=== PATIENT | female | born 1995 | race Caucasian/White ===

== ENCOUNTER 2019-01-11 15:00 | Inpatient (IN) | payer OTHER ==
[~2019-01-11 15:00] MED LIST: BUPIVACAINE-EPI 0.25%-1:200000 MPF 30 ML VIAL. ONE; SURGICEL HEMOSTAT 4X8 EACH. ONE
[2019-01-11] MEDS ORDERED: PROPOFOL 20 ML IV ONE (15:34)
[2019-01-11] MEDS ORDERED: ONDANSETRON PF 4 MG/2 ML VIAL. ONE (15:34)
[2019-01-11] MEDS ORDERED: LIDOCAINE 2% PF 5 ML VIAL. ONE (15:34)
[2019-01-11] MEDS ORDERED: DEXAMETHASONE SOD PHOS 4 MG/ML VIAL ONE (15:34)
[2019-01-11] MEDS ORDERED: MIDAZOLAM HCL/PF 2 MG/2 ML VIAL. ONE (15:34)
[2019-01-11] MEDS ORDERED: fentaNYL PF VIAL 100 MCG/2 ML VIAL ONE ×2 (15:35→17:36)
[2019-01-11] MEDS ORDERED: ROCURONIUM 50 MG/5 ML VIAL. ONE (15:35)
[2019-01-11] MEDS: IV RINGERS,LACTATED 1000ML 1,000 ML IV SCH ×2 (15:45→17:47)
[2019-01-11] MEDS ORDERED: ceFAZolin SODIUM 1 GM VIAL ONE (16:00)
[2019-01-11] MEDS ORDERED: SEVOFLURANE 61 TO 120 MINUTES. IH ONE (16:39)
[2019-01-11] MEDS ORDERED: LIDOCAINE 1% PF 2 ML VIAL. ID PRN (16:45)
[2019-01-11] MEDS ORDERED: ONDANSETRON PF 4 MG/2 ML VIAL. IV PRN ×2 (16:45→17:30)
[2019-01-11] MEDS ORDERED: HYDROmorphone 2 MG/ML VIAL IV PRN (16:45)
[2019-01-11] MEDS ORDERED: fentaNYL PF VIAL 100 MCG/2 ML VIAL IV PRN (16:45)
[2019-01-11] MEDS ORDERED: MORPHINE SULFATE 2 MG/ML VIAL. IV PRN (16:45)
[2019-01-11] MEDS ORDERED: PROCHLORPERAZINE 10 MG/2 ML VIAL. IV PRN ×2 (16:45→17:30)
[2019-01-11] MEDS ORDERED: NEOSTIGMINE METHYLSULFATE 5 MG/5 ML SYRINGE. ONE (16:51)
[2019-01-11] MEDS ORDERED: GLYCOPYRROLATE 1 MG/5 ML VIAL. ONE (16:51)
[2019-01-11] MEDS ORDERED: ESMOLOL 100 MG/10 ML VIAL. IVP ONE (16:59)
[2019-01-11] MEDS ORDERED: BUPIVACAINE-EPI 0.25%-1:200000 MPF 30 ML VIAL. INJ ONE (17:00)
--- NOTE | 2019-01-11 17:25 | PDOC ---
BRIEF OPERATIVE NOTE Date: Jan 11, 2019 Pre-Op Diagnosis Right Ovarian Torsion Post-Op Diagnosis SAme + Mature Teratoma [facility] Petersen Anesthesia Type: General Blood Loss 10 ml Specimens Obtained Right fallopian tube and ovary Findings nml size uterus, nml Left fallopian tube and BOOGIE; Torsion Right adnexa with mature teratoma Complications none Operative Note see dictation DANO PETERSEN Jr, MD Jan 11, 2019 17:25
[2019-01-11] MEDS ORDERED: diphenhydrAMINE 50 MG/ML VIAL IV PRN (17:30)
[2019-01-11] MEDS ORDERED: CALCIUM CARBONATE 500 MG TAB.CHEW PO PRN (17:30)
[2019-01-11] MEDS ORDERED: DEXTROSE 50% 25 GM / 50ML DISP.SYRIN. IV PRN (17:30)
[2019-01-11] MEDS ORDERED: KETOROLAC 30 MG/ML VIAL. IV PRN (17:30)
[2019-01-11] MEDS ORDERED: 0.9 % SODIUM CHLORIDE 10 ML DISP.SYRIN. IV PRN (17:30)
[2019-01-11] MEDS ORDERED: SIMETHICONE 80 MG TAB.CHEW PO PRN (17:30)
[2019-01-11] MEDS ORDERED: ZOLPIDEM 5 MG TABLET. PO PRN (17:30)
[2019-01-11] MEDS ORDERED: diphenhydrAMINE HCL 25 MG CAPSULE PO PRN (17:30)
[2019-01-11] MEDS ORDERED: PROCHLORPERAZINE 10 MG/2 ML VIAL. ONE (17:36)
--- NOTE | 2019-01-11 17:39 | OP ---
DATE OF SURGERY: 01/11/2019 PREOPERATIVE DIAGNOSIS: Right ovarian torsion. POSTOPERATIVE DIAGNOSES: 1. Right ovarian torsion. 2. Mature teratoma. PROCEDURE: Laparoscopic RSO. SURGEON: Juan M Petersen MD. ANESTHESIA: GETA. ESTIMATED BLOOD LOSS: 10 mL. COMPLICATIONS: None. FINDINGS: Normal size uterus, normal left fallopian tube and ovary, torsion of the right adnexa with a mature teratoma. SUMMARY: A 23-year-old 1, para 1, who represented to [facility] Emergency Department with increasing lower abdominal pain for the last two days. The patient was found to have ovarian torsion of the right adnexa with no blood flow leading to the right adnexa on pelvic sonogram. She was then transferred to [place] operating room. The patient was counseled on risks, benefits and expectations of laparoscopic RSO and voiced a clear understanding to proceed. DESCRIPTION OF PROCEDURE: The patient was taken to surgery suite and placed in dorsal lithotomy position. She was prepped with Betadine solution for vaginal prep and ChloraPrep for abdominal prep. After adequate anesthesia, bivalve speculum was placed vaginally. Anterior lip of the cervix grasped with single tooth tenaculum. The acorn uterine manipulator was then placed. The bivalve speculum was removed. Attention was now placed on abdomen. Low transverse skin incision made just below the umbilicus with a scalpel. The Veress needle was then placed through the infraumbilical incision site. The abdomen was allowed to insufflate up to 1.5 liters CO2 gas. The Veress needle was then removed. A 5-mm trocar was placed. The scope was positioned. Right adnexa was very enlarged of about 12 cm size, which was larger than the uterus itself. The uterus appeared normal. Left fallopian tube and ovary appeared normal. A second incision was made in the left lower quadrant and a third incision at the midline two fingerbreadths above the pubic symphysis in which a 5-mm trocar was placed in the left lower quadrant and an 11-mm trocar placed at the midline above the pubic symphysis. With the aid of graspers and the EnSeal device, the right infundibulopelvic ligament was coagulated and dissected. The right utero-ovarian pedicle was coagulated and dissected. The pedicles were hemostatic. The ovary was decompressed using the EnSeal device along with the suction irrigation in which there was mucinous material as well as fatty tissue and hair indicating a mature teratoma. Once the ovary was decompressed as much as possible with liquified components, the Endobag was placed to remove the right fallopian tube and ovary in its entirety. Suction irrigation was utilized to verify good hemostasis. A small amount of normal saline was left in posterior cul-de-sac. The trocars were then removed under direct visualization. The abdomen was allowed to deflate as much as possible along with mechanical manipulation. The suprapubic incision site was closed at the fascial layer using 2-0 Vicryl suture in [id number] manner. The three skin incisions were reapproximated using 4-0 Vicryl suture in subcuticular manner. A 0.25% Marcaine with epinephrine was injected at each incision site. The uterine acorn manipulator and single tooth tenaculum were removed. The patient tolerated the procedure well and was sent to recovery room in stable condition. Sponge and needle count correct x 3. JUAN M PETERSEN MD DR: ANASTASIA/sara JOB#: [id number] / [id number]
[2019-01-11] MEDS: fentaNYL PF VIAL 100 MCG/2 ML VIAL IV PRN ×2 (17:45→19:02)
[2019-01-11 19:33] VITALS: BP 112/67
--- NOTE | 2019-01-11 19:37 | NUR ---
Received report from [facility] recovery room.@[id number] Assumed care of the patient at 1920 alert and oriented x4. Vital signs stable. Denies any pain or discomfort at this time. # islands intact with little shadowing noted. IVF infusing to the left hand without any discomfort. Family member at the bedside. No acute distress noted. Call zaragoza is in reach will continue to monitor.
[2019-01-11] MEDS: GABAPENTIN 300 MG CAPSULE. PO SCH (22:36)
[2019-01-11] MEDS: oxyCODONE/APAP 5/325 1 TAB TABLET PO PRN (22:37)
[2019-01-12 00:08] VITALS: BP 114/76
[2019-01-12] MEDS: GABAPENTIN 300 MG CAPSULE. PO SCH (06:50)
[2019-01-12 06:51] VITALS: BP 110/81
[2019-01-12 07:24] LABS: BASO % 0 % (0-3); EOS % 0 % (0-3); HEMATOCRIT 42.8 % (36.0-47.0); HEMOGLOBIN 14.5 g/dL (12.0-15.5); LYMPH # 1.8 x10^3/uL (1.0-4.8); LYMPH % 12 % (24-48); MEAN CORPUSCULAR HEMOGLOBIN 30 pg (25-35); MEAN CORPUSCULAR HGB CONC 34 g/dL (31-37); MEAN CORPUSCULAR VOLUME 89 fL (79-100); MONO # 0.6 x10^3/uL (0.0-1.1); MONO % 4 % (0-9); NEUT # 12.6 x10^3uL (1.8-7.7); NEUT % 83 % (31-73); PLATELET COUNT 226 x10^3/uL (140-400); RED BLOOD COUNT 4.79 x10^6/uL (3.50-5.40); RED CELL DISTRIBUTION WIDTH 13.2 % (11.5-14.5); WHITE BLOOD COUNT 15.1 x10^3/uL (4.0-11.0)
[2019-01-12 07:42] LABS: % BANDS 2 % (0-9); % LYMPHS 14 % (24-48); % MONOS 5 % (0-10); % SEGS 79 % (35-66); PLT ESTIMATE ADEQUATE (ADEQUATE)
[2019-01-12 07:43] LABS: OVALOCYTES FEW
[2019-01-12] MEDS ORDERED: IBUPROFEN 400 MG TABLET. PO PRN (08:30)
[2019-01-12] MEDS: oxyCODONE/APAP 5/325 1 TAB TABLET PO PRN (09:35)
--- NOTE | 2019-01-12 10:33 | PDOC ---
SURGICAL PROGRESS NOTE Subjective Pt. feeling well. No complaints. Vital Signs Vital Signs Date Time Temp Pulse Resp B/P (MAP) Pulse Ox O2 Delivery O2 Flow Rate FiO2 01/12/19 06:51 98.2 60 110/81 (91) 100 10.0 98.2 01/11/19 22:37 18 Room Air I&O Intake and Output 01/12/19 07:00 Intake Total 2510 ml Output Total 210 ml Balance 2300 ml Intake Oral 1260 ml IV Total 1250 ml Output Urine Total 200 ml Estimated Blood Loss 10 ml # Voids 4 PATIENT HAS A WILCOX: No General: Alert, Oriented X3, Cooperative HEENT: Atraumatic Lungs: Clear to auscultation Heart: Regular rate Abdomen: Normal bowel sounds, Soft, No tenderness, No masses Psych/Mental Status: Mental status NL Labs Laboratory Tests Test 01/12/19 07:15 White Blood Count 15.1 x10^3/uL (4.0-11.0) Red Blood Count 4.79 x10^6/uL (3.50-5.40) Hemoglobin 14.5 g/dL (12.0-15.5) Hematocrit 42.8 % (36.0-47.0) Mean Corpuscular Volume 89 fL (79-100) Mean Corpuscular Hemoglobin 30 pg (25-35) Mean Corpuscular Hemoglobin Concent 34 g/dL (31-37) Red Cell Distribution Width 13.2 % (11.5-14.5) Platelet Count 226 x10^3/uL (140-400) Neutrophils (%) (Auto) 83 % (31-73) Lymphocytes (%) (Auto) 12 % (24-48) Monocytes (%) (Auto) 4 % (0-9) Eosinophils (%) (Auto) 0 % (0-3) Basophils (%) (Auto) 0 % (0-3) Neutrophils # (Auto) 12.6 x10^3uL (1.8-7.7) Lymphocytes # (Auto) 1.8 x10^3/uL (1.0-4.8) Monocytes # (Auto) 0.6 x10^3/uL (0.0-1.1) Eosinophils # (Auto) 0.0 x10^3/uL (0.0-0.7) Basophils # (Auto) 0.0 x10^3/uL (0.0-0.2) Segmented Neutrophils % 79 % (35-66) Band Neutrophils % 2 % (0-9) Lymphocytes % 14 % (24-48) Monocytes % 5 % (0-10) Platelet Estimate Adequate (ADEQUATE) Ovalocytes Few Laboratory Tests Test 01/12/19 07:15 White Blood Count 15.1 x10^3/uL (4.0-11.0) Red Blood Count 4.79 x10^6/uL (3.50-5.40) Hemoglobin 14.5 g/dL (12.0-15.5) Hematocrit 42.8 % (36.0-47.0) Mean Corpuscular Volume 89 fL (79-100) Mean Corpuscular Hemoglobin 30 pg (25-35) Mean Corpuscular Hemoglobin Concent 34 g/dL (31-37) Red Cell Distribution Width 13.2 % (11.5-14.5) Platelet Count 226 x10^3/uL (140-400) Neutrophils (%) (Auto) 83 % (31-73) Lymphocytes (%) (Auto) 12 % (24-48) Monocytes (%) (Auto) 4 % (0-9) Eosinophils (%) (Auto) 0 % (0-3) Basophils (%) (Auto) 0 % (0-3) Neutrophils # (Auto) 12.6 x10^3uL (1.8-7.7) Lymphocytes # (Auto) 1.8 x10^3/uL (1.0-4.8) Monocytes # (Auto) 0.6 x10^3/uL (0.0-1.1) Eosinophils # (Auto) 0.0 x10^3/uL (0.0-0.7) Basophils # (Auto) 0.0 x10^3/uL (0.0-0.2) Segmented Neutrophils % 79 % (35-66) Band Neutrophils % 2 % (0-9) Lymphocytes % 14 % (24-48) Monocytes % 5 % (0-10) Platelet Estimate Adequate (ADEQUATE) Ovalocytes Few Problem List Problems Medical Problems: (1) Mature teratoma Status: Acute (2) Ovarian torsion Status: Acute Assessment/Plan A: POD#1 s/p LPSC RSO P: D/c home. DANO LERMA Jr, MD 4, 2019 10:33
[2019-01-12] MEDS ORDERED: OXYC1TAB15 PO (10:35)
--- NOTE | 2019-01-12 10:36 | DISCH ---
DISCHARGE INSTRUCTIONS Condition on Discharge Condition on Discharge: Stable Activity After Discharge Activity Instructions for Disc: Activity as tolerated Lifting Instructions after Dis: No heavy lifting Driving Instructions after Dis: Do not drive today Diet after Discharge Diet after Discharge: Regular Contacting the DRLatrice after DC Call your doctor for: Concerns you may have Follow-Up Follow up with: Dr. Wen in 2 weeks. DANO WEN Jr, MD Jan 12, 2019 10:36
--- NOTE | 2019-01-16 13:06 | PATHOLOGY ---
[facility] Accession Number: [id number] . 01 Material submitted: . ovary - RIGHT OVARY AND TUBE. Modifiers: right . 01 Clinical history: . Right ovarian torsion . 02 Diagnosis: Ovary and fallopian tube, right, salpingo-oophorectomy: - Ovary with mature teratoma and hemorrhagic corpus luteum cyst. - Fallopian tube with simple paratubal cyst. ([facility] 01/16/2019) QTP/01/16/2019 . 02 Electronically signed: . Huan Noel MD, Pathologist NPI- [id number] . 01 Gross description: . The specimen is received in formalin, labeled "Teena Diaz, right ovary and tube", is an enlarged, focally disrupted ovary and overlying fimbriated fallopian tube weighing 62 g in total and measuring (ovary = 6.2 x 4.0 x 2.8 cm and fallopian tube, 8.0 cm in length with an average 0.3 cm diameter. The ovary is filled with abundant sebum and livingston brown hair and shows a multicystic cut surface with a fairly circumscribed silveira-livingston homogeneous nodule measuring 0.7 x 0.7 x 0.5 cm. A degenerating corpus luteum is identified. The cyst wall is wrinkled with no discrete papillary excrescence. The fallopian tubes serosa is livingston-brown and the lumen is patent throughout. There are few paratubal cyst. The largest measuring 0.6 cm in greatest dimension. Representatively submitted as follows: A1-A3. Homogeneous nodule. A4. Corpus luteum and cyst wall. A5. Fallopian tube and paratubal cyst. ([facility]; 01/13/2019) SHS/SHS . 02 Pathologist provided ICD-10: D27.0, N83.11, N83.8 . 02 [facility] . [id number] Specimen Comment: A courtesy copy of this report has been sent to Specimen Comment: [phone]. Specimen Comment: Report sent to Performed at: 01 [facility] [address], [place] [id number] MD Phi Garza MD Phone: [phone] Performed at: 02 [facility] [address] [place], [place] [id number] MD Shahab Akins MD Phone: [phone]
== END 2019-01-12 11:40 | disposition home or self-care (01) | DRG 737 ==
LOC: 3 NORTH 16:31
PROVIDERS: ADMIT Obstetrics & Gynecology; ATTEND Obstetrics & Gynecology
PROC: 0UT00ZZ Resection of Right Ovary, Open Approach (ICD-10-PCS; 2019-01-11)
PROC: 0UT50ZZ Resection of Right Fallopian Tube, Open Approach (ICD-10-PCS; principal; 2019-01-11 15:00)
DX: D39.11 Neoplasm of uncertain behavior of right ovary (principal); N83.511 Torsion of right ovary and ovarian pedicle; Z90.49 Acquired absence of other specified parts of digestive tract
CPT/HCPCS: 36415; 85007; 85025; 88307; A7015; J0690; J0780; J1100; J2001; J2250; J2405; J2704; J2710; J3010; J3490; J7030; J7120